=== PATIENT | male | born 1990 | race African-American/Black ===

== ENCOUNTER 2018-03-08 23:53 | Emergency (ER) | payer BC ==
[~2018-03-08] VITALS: Ht 182.9 cm; Wt 104.9 kg
[2018-03-09 01:40] VITALS: BP 133/100
== END 2018-03-09 01:41 | disposition home or self-care (01) ==
LOC: ED 23:53
DX: R07.89 Other chest pain (principal); Z98.890 Other specified postprocedural states
CPT/HCPCS: Q0092

== ENCOUNTER 2019-05-29 23:24 | Emergency (ER) | payer BC ==
[2019-05-30 00:08] LABS: BASOPHIL % 0.3 % (0-2); PLATELET COUNT 265 x10^3mcL (130-400); RED CELL DISTRIBUTION WIDTH 14.1 % (11.5-14.5)
[2019-05-30 00:34] LABS: CALCIUM 9.2 mg/dL (8.5-10.1); CARBON DIOXIDE 29.2 mmol/L (21-32); CHLORIDE SERUM 103 mmol/L (98-107); CREATININE SERUM 1.2 mg/dL (0.7-1.3); GFR1 > 60 mL/min; GLUCOSE SERUM 103 mg/dL (74-106); SODIUM SERUM 140 mmol/L (136-145)
[2019-05-30 00:38] LABS: ALKALINE PHOSPHATASE 71 U/L (46-116); ALT/SGPT 27 U/L (16-63); AST/SGOT 20 U/L (15-37); BILIRUBIN TOTAL 0.66 mg/dL (0.20-1.00); TOTAL PROTEIN, SERUM 8.2 g/dL (6.4-8.2)
[2019-05-30 01:23] VITALS: BP 140/76
== END 2019-05-30 01:23 | disposition home or self-care (01) ==
LOC: ED 23:24
PROVIDERS: Emergency Medicine
DX: M94.0 Chondrocostal junction syndrome [Tietze] (principal); Z98.890 Other specified postprocedural states
CPT/HCPCS: 36415; Q0092

== ENCOUNTER 2020-03-01 21:06 | Emergency (ER) | payer BC ==
[~2020-03-01] VITALS: Ht 182.9 cm; Wt 115.7 kg
[2020-03-01 21:53] VITALS: BP 142/843; Ht 182.9 cm; Wt 115.7 kg
== END 2020-03-01 23:09 | disposition home or self-care (01) ==
LOC: ED 21:06
DX: M94.0 Chondrocostal junction syndrome [Tietze] (principal)